=== PATIENT | male | born 1965 | race Caucasian/White ===

== ENCOUNTER → 2020-11-25 | Outpatient (CLI) | payer BC, OTHER ==
[~2020-11-25] MED LIST: ZOFRAN4 MG PO
== END ==
LOC: RAD 12:29
DX: N40.1 Benign prostatic hyperplasia with lower urinary tract symptoms (principal); M54.5 Low back pain; R93.5 Abnormal findings on diagnostic imaging of other abdominal regions, including retroperitoneum; M50.322 Other cervical disc degeneration at C5-C6 level; M41.9 Scoliosis, unspecified; R93.7 Abnormal findings on diagnostic imaging of other parts of musculoskeletal system; M46.06 Spinal enthesopathy, lumbar region
CPT/HCPCS: 72050; 72072; 72110; 74018